=== PATIENT | female | born 1955 | race Native Hawaiian/Other Pacific Islander ===

== ENCOUNTER 2020-02-06 17:02 | Outpatient (CLI) | payer OTHER, BC ==
[~2020-02-06 17:02] MED LIST: DENO60SO SC; PARO25TA PO
== END 2020-02-07 00:02 | disposition home or self-care (01) ==
LOC: RAD 17:02
DX: M25.562 Pain in left knee (principal)

== ENCOUNTER 2021-08-12 18:44 | Outpatient (CLI) | payer OTHER, BC | END 2021-08-12 19:41 | disposition home or self-care (01) | LOC: RAD 18:44 | PROVIDERS: ATTEND Physician Assistant | DX: M25.561 Pain in right knee (principal); M25.562 Pain in left knee ==